=== PATIENT | male | born 1985 | race Caucasian/White ===

== ENCOUNTER 2020-09-17 19:56 | Emergency (ER) | payer OTHER ==
[2020-09-17 21:11] LABS: BASOPHIL 0.8 % (0-2); EOSINOPHIL 1.4 % (0-5); HCT 46.9 % (42.0-52.0); HGB 15.9 g/dl (13.2-18.0); LYMPHOCYTE 43.6 % (15-48); MCH 29.1 pg (25.0-31.0); MCHC 33.9 g/dL (32.0-36.0); MCV 85.7 fL (78.0-100.0); MONOCYTE 8.8 % (0-12); MPV 9.9 fL (6.0-9.5); NEUTROPHIL 45.1 % (41-80); NRBC 0; PLT 291 K/uL (150-400); RBC 5.47 M/uL (4.70-6.00); RDW 12.8 % (11.5-14.0); WBC 7.7 K/uL (4.0-10.5)
[2020-09-17 21:26] LABS: ALBUMIN 3.9 g/dL (3.4-5.0); BILIRUBIN - TOTAL 0.5 mg/dL (0.2-1.0); BUN/CREAT RATIO (CALC) 16.8 RATIO; CREATININE 1.01 mg/dL (0.67-1.17); GLOBULIN (CALCULATION) 4.3 g/dL; POTASSIUM 3.8 mmol/L (3.5-5.1); TOTAL PROTEIN 8.2 g/dL (6.4-8.2)
== END 2020-09-17 22:50 | disposition home or self-care (01) ==
LOC: FER 19:56
PROVIDERS: Nurse Practitioner Family
DX: K59.00 Constipation, unspecified (principal)
CPT/HCPCS: 36415; 74022; 80053; 83690; 85025; 87339